=== PATIENT | female | born 1995 | race Caucasian/White ===

== ENCOUNTER 2022-01-07 09:43 | Emergency (ER) | payer BC, MEDICAID ==
[~2022-01-07] VITALS: Ht 157.5 cm; Wt 60.8 kg
[~2022-01-07 09:43] MED LIST: ACET1TAB43 PO; CEPH500C PO; DOCU100C37 PO; FERR325T18 PO; IBUP-1773 PO; NAPR-243 PO; PRD20T PO; PREN-148 PO
[2022-01-07 09:58] LABS: BILIRUBIN,URINE NEGATIVE (NEGATIVE); CLARITY,URINE SL CLOUDY; COLOR,URINE YELLOW; GLUCOSE, URINE (UA) NEGATIVE (NEGATIVE); KETONES,URINE TRACE (NEGATIVE); LEUKOCYTE ESTERASE ,URINE 1+ (NEGATIVE); NITRITE,URINE NEGATIVE (NEGATIVE); PROTEIN,URINE NEGATIVE (NEGATIVE)
[2022-01-07 10:05] LABS: BACTERIA,URINE FEW /HPF; SQUAMOUS EPITHELIAL CELL,UR 25-50 /HPF
[2022-01-07] MEDS ORDERED: CYCL10TA25 PO (10:23)
--- NOTE | 2022-01-07 10:24 | ED Back Pain ---
General Chief Complaint: Back Problems Stated Complaint: BACK PAIN Nursing Triage Note: PT AMBULATE TO ROOM 06 WITHOUT DIFFICULTY WITH C/O LOWER MEDIAL BACK PAIN SINCE SATURDAY MORNING. PT REPORTS WAKING UP AND HER BACK WAS HURTING. PT DENIES INJURY AND STATES SHE DID NOT HURT THE NIGHT BEFORE. PT REPORTS NAUSEA WITH NO VOMITING. Source of Information: Patient Exam Limitations: No Limitations History of Present Illness Date Seen by Provider: Jan 07, 2022 Time Seen by Provider: 09:46 Initial Comments This 26-year-old young lady presents to the emergency room on day 5 of lower back pain. She cannot identify any particular stressor or injury that triggered the back pain. She reports Tylenol, gentle heat and using a pillow under her back to help. Pain seems worse with bending. She does have spasms at night. S he denies with LMP 2 weeks ago. She has had no urinary symptoms. She denies any prior back problems. She has no significant medical history. She denies any radicular symptoms down the legs or problems with bowel or bladder control. 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 Allergies and Home Medications Allergies Coded Allergies: No Known Drug Allergies (Unverified , 05/04/12) Patient Home Medication List Home Medication List Reviewed: Yes Acetaminophen with Codeine (Acetaminophen-Cod #3 Tablet) 1 Each Tablet, 1-2 TAB PO Q4H PRN for MODERATE TO SEVERE PAIN Prescribed by: ARTURO MENDOZA on 06/16/152246 Cyclobenzaprine HCl (Cyclobenzaprine HCl) 10 Mg Tablet, 10 MG PO Q8H PRN for SPASMS Prescribed by: DANIEL BRYAN on 01/07/22 1023 Docusate Sodium (Docusate Sodium) 100 Mg Capsule, 100 MG PO BID PRN for CONSTIPATION Prescribed by: ARTURO MENDOZA on 06/16/152246 Ferrous Sulfate (Ferrous Sulfate) 325 Mg Tablet, 325 MG PO DAILY Prescribed by: ARTURO MENDOZA on 06/16/152246 Ibuprofen (Ibuprofen) 600 Mg Tablet, 600 MG PO Q6H Prescribed by: ARTURO MENDOZA on 06/16/152246 Vit #76/Iron,Carb/FA (Pnv 29-1 Tablet) 1 Each Tablet, 1 EACH PO, (Reported) Entered as Reported by: WESLEY MONCADA on 06/16/15 0323 Review of Systems Constitutional: no symptoms reported EENTM: no symptoms reported Respiratory: no symptoms reported Cardiovascular: no symptoms reported Gastrointestinal: no symptoms reported Genitourinary: no symptoms reported : No LMP: Dec 23, 2021 Musculoskeletal: see HPI Skin: no symptoms reported Psychiatric/Neurological: No Symptoms Reported Past Cyowfmw-Qyvqtf-Obbmvo Hx Patient Social History Tobacco Use?: No Smoking Status: Never a Smoker Smokeless Tobacco Frequency: Never a User Use of E-Cig and/or Vaping dev: No Use of E-Cig and/or Vaping Ronn: Never a User Substance use?: No Alcohol Use?: Yes Alcohol Frequency: Once in a while Pt feels they are or have been: No Immunizations Up To Date Tetanus Booster (TDap): Unknown PED Vaccines UTD: Yes Seasonal Allergies Seasonal Allergies: No Past Medical History Surgeries: No Respiratory: No Cardiac: No Neurological: No Reproductive Disorders: No Genitourinary: No Gastrointestinal: No Musculoskeletal: No Endocrine: No HEENT: No Cancer: No Psychosocial: No Adverse Reaction/Blood Tranf: No Family Medical History Protein S deficiency Paternal grandmother Physical Exam Vital Signs Vital Signs - First Documented 01/07/22 01/07/22 09:47 10:44 Temp 36.4 Pulse 73 Resp 15 B/P (MAP) 126/77 (93) Pulse Ox 100 O2 Delivery Room Air Capillary Refill : Less Than 3 Seconds Height, Weight, BMI Height: 5'4.00" Weight: 159lbs. oz. 72.785159rs; 24.00 BMI Method:Stated General Appearance: No Apparent Distress, WD/WN, Thin HEENT: PERRL/EOMI, Normal ENT Inspection Neck: Normal Inspection Cardiovascular: Regular Rate, Rhythm, No Edema, No Murmur Respiratory: Lungs Clear, Normal Breath Sounds, No Accessory Muscle Use Gastrointestinal: Non Tender; No Distended Back: Normal Inspection, Vertebral Tenderness (Minimal tenderness over the L5 region), Other (Moderate tenderness in the right paraspinous muscles around L4 and L5) Extremity: Normal Inspection Neurologic/Psychiatric: Alert, Oriented x3, Normal Mood/Affect Skin: Normal Color, Warm/Dry Progress/Results/Core Measures Results/Orders Lab Results Laboratory Tests Test 01/07/22 09:48 Range/Units Urine Color YELLOW Urine Clarity SL CLOUDY Urine pH 6.0 5-9 Urine Specific [place] 1.025 H 1.016-1.022 Urine Protein NEGATIVE NEGATIVE Urine Glucose (UA) NEGATIVE NEGATIVE Urine Ketones TRACE H NEGATIVE Urine Nitrite NEGATIVE NEGATIVE Urine Bilirubin NEGATIVE NEGATIVE Urine Urobilinogen 0.2 < = 1.0 MG/DL Urine Leukocyte Esterase 1+ H NEGATIVE Urine RBC (Auto) 2+ H NEGATIVE Urine RBC 2-5 H /HPF Urine WBC 5-10 H /HPF Urine Squamous Epithelial Cells 25-50 H /HPF Urine Crystals NONE /LPF Urine Bacteria FEW H /HPF Urine Casts NONE /LPF Urine Mucus MODERATE H /LPF Urine Culture Indicated YES Micro Results Microbiology 01/07/22 Urine Culture - Final, Complete Lactobacillus species My Orders Orders - DANIEL MOORE MD Ua Culture If Indicated (01/07/22 09:46) Urine Culture (01/07/22 09:48) Vital Signs/I&O 01/07/22 01/07/22 09:47 10:44 Temp 36.4 Pulse 73 73 Resp 15 16 B/P (MAP) 126/77 (93) 124/69 Pulse Ox 100 O2 Delivery Room Air Room Air Blood Pressure Mean: 93 Progress Progress Note : Progress Note Urine demonstrated some white cells and bacteria but it seemed contaminated as there were many epithelial cells present. No antibiotics were prescribed as she did not have any urinary symptoms. We discussed management of the back pain. See discharge instructions. Work note was given. Departure Impression Primary Impression: Low back pain Qualified Codes: M54.50 - Low back pain, unspecified Disposition: 01 HOME, SELF-CARE Condition: Stable Departure-Patient Inst. Decision time for Depature: 10:20 Referrals: NO,LOCAL PHYSICIAN (PCP/Family) Primary Care Physician Patient Instructions: Low Back Pain in Adults Add. Discharge Instructions: Increase your fluid intake. Staying well-hydrated will help relax your tense muscles and speed your recovery. You may take ibuprofen up to 600 mg every 6 hours and/or Tylenol (acetaminophen) up to 1000 mg every 6 hours as needed for pain. Gentle heat and gentle stretching may also be helpful in relaxing your tense muscles. Avoid excessive bending or heavy lifting until the pain resolves. You may use the muscle relaxer (cyclobenzaprine) at night before bed or when you are able to relax around the home. It may cause drowsiness so do not drive or operate machinery while on this medication. Return to the ER immediately if you develop problems controlling bowel or bladder function, weakness in your legs, severe escalation of pain, or numbness in your groin. This could indicate an emergent condition related to your spine that requires immediate evaluation. Follow-up with your primary care provider next week if the pain has not resolved. All discharge instructions reviewed with patient and/or family. Voiced understanding. Scripts Cyclobenzaprine HCl (Cyclobenzaprine HCl) 10 Mg Tablet 10 MG PO Q8H PRN for SPASMS, #10 TAB 0 Refills Prov: DANIEL MOORE MD 01/07/22 Work/School Note: Work Release Form Date Seen in the Emergency Department: Jan 07, 2022 Return to Work: Jan 08, 2022 Other Restrictions Listed Below: Avoid excessive bending or lifting over 20 pounds until pain resolves. DANIEL MOORE MD Jan 07, 2022 10:24
[2022-01-07 10:44] VITALS: BP 124/69
== END 2022-01-07 10:44 | disposition home or self-care (01) ==
LOC: EDUNIT# 09:43 → ER 09:44
DX: M54.50 Low back pain, unspecified (principal)
CPT/HCPCS: 81000; 87088; 99282